=== PATIENT | male | born 1955 | race African-American/Black ===

== ENCOUNTER 2019-08-12 04:14 | Emergency (ER) | payer OTHER ==
[~2019-08-12] VITALS: Ht 167.6 cm; Wt 72.6 kg
[~2019-08-12 04:14] MED LIST: NORCO 5-325 TA1 EAC1 ORAL
[2019-08-12 04:17] VITALS: BP 130/81
[2019-08-12] MEDS ORDERED: Morphine Sulfate 4mg/ml Inj (IV USE ONLY) IVP ONE (04:30)
[2019-08-12] MEDS ORDERED: Omnipaque-300 100ml vial INJ PRN (04:30)
[2019-08-12 05:57] LABS: BASOPHILS % (AUTO) 2.1 % (0.0-2.0); EOSINOPHILS % (AUTO) 2.9 % (0.0-3.0); HEMATOCRIT 49.9 % (42.0-52.0); HEMOGLOBIN 16.3 G/DL (14.2-18.0); LYMPHOCYTES % (AUTO) 26.4 % (20.0-45.0); MEAN CORPUSCULAR VOLUME 91 FL (80-99); MONOCYTES % (AUTO) 7.1 % (1.0-10.0); NEUTROPHILS % (AUTO) 61.6 % (45.0-75.0); PLATELET COUNT 257 K/UL (150-450); RED BLOOD COUNT 5.49 M/UL (4.70-6.10); RED CELL DISTRIBUTION WIDTH 12.4 % (11.6-14.8); WHITE BLOOD COUNT 8.5 K/UL (4.8-10.8)
[2019-08-12 06:05] LABS: ANION GAP 10 mmol/L (5-15); BLOOD UREA NITROGEN 10 mg/dL (7-18); CALCIUM 9.1 MG/DL (8.5-10.1); CARBON DIOXIDE 28 MMOL/L (21-32); CHLORIDE 107 MMOL/L (98-107); CREATININE 1.1 MG/DL (0.55-1.30); POTASSIUM 4.2 MMOL/L (3.5-5.1); SODIUM 145 MMOL/L (136-145)
[2019-08-12 06:10] LABS: ALANINE AMINOTRANSFERASE 84 U/L (12-78); ALBUMIN 4.3 G/DL (3.4-5.0); ALBUMIN/GLOBULIN RATIO 1.2 (1.0-2.7); ALKALINE PHOSPHATASE 131 U/L (46-116); ASPARTATE AMINO TRANSFERASE 40 U/L (15-37); BILIRUBIN,TOTAL 0.4 MG/DL (0.2-1.0)
[2019-08-12 06:21] LABS: BILIRUBIN, URINE NEGATIVE (NEGATIVE); GLUCOSE, URINE (UA) NEGATIVE (NEGATIVE); KETONES,URINE NEGATIVE (NEGATIVE); LEUKOCYTE ESTERASE ,URINE 1+ (NEGATIVE); NITRITE,URINE NEGATIVE (NEGATIVE); PH,URINE 6 (4.5-8.0); PROTEIN,URINE 1+ (NEGATIVE); UROBILINOGEN,URINE 4 MG/DL (0.0-1.0)
[2019-08-12 06:56] LABS: APPEARANCE,URINE SLIGHTLY CLOUDY; COLOR,URINE YELLOW
--- NOTE | 2019-08-12 07:07 | Emergency Room Report ---
History of Present Illness General Chief Complaint: Abdominal Pain Source: Patient (Benjamin Koenig MD) Present Illness HPI . 63-year-old male presents ED complaining of abdominal pain. Brought in by EMS from home. Has had pain for the last 3 days. Left-sided, sharp, 7 out of 10, radiating to the back. Notes increased urination. Denies fevers or chills. Denies nausea or vomiting. Denies chest pain. Denies cough. No other aggravating relieving factors. Denies any other associated symptoms COVID-19 risk:Travel to affect: No (Benjamin Koenig MD) Allergies: Coded Allergies: PENICILLINS (Verified Allergy, Unknown, 08/12/19) Patient History Past Medical History: none Past Surgical History: none Pertinent Family History: none Social History: Denies: smoking, alcohol use, drug use Immunizations: UTD Reviewed Nursing Documentation: PMH: Agreed; PSxH: Agreed (Benjamin Koenig MD) Review of Systems All Other Systems: negative except mentioned in HPI (Benjamin Koenig MD) Physical Exam Vital Signs Date Time Temp Pulse Resp B/P (MAP) Pulse Ox O2 Delivery O2 Flow Rate FiO2 08/12/19 04:08 98.2 58 18 130/81 (97) 98 Room Air Sp02 EP Interpretation: reviewed, normal General Appearance: no apparent distress, alert, GCS 15, non-toxic Head: normocephalic, atraumatic Eyes: bilateral eye normal inspection, bilateral eye PERRL ENT: hearing grossly normal, normal pharynx, no angioedema, normal voice Neck: full range of motion, supple/symm/no masses Respiratory: chest non-tender, lungs clear, normal breath sounds, speaking full sentences Cardiovascular #1: regular rate, rhythm, no edema Cardiovascular #2: 2+ carotid (R), 2+ carotid (L), 2+ radial (R), 2+ radial (L) , 2+ dorsalis pedis (R), 2+ dorsalis pedis (L) Gastrointestinal: normal bowel sounds, soft, non-distended, no guarding, no rebound, tenderness - LLQ Rectal: deferred Genitourinary: normal inspection, no CVA tenderness Musculoskeletal: back normal, normal range of motion, gait/station normal, non- tender Neurologic: alert, motor strength/tone normal, oriented x3, sensory intact, responsive, speech normal Psychiatric: judgement/insight normal, memory normal, mood/affect normal, no suicidal/homicidal ideation Reflexes: 3+ bicep (R), 3+ bicep (L), 3+ tricep (R), 3+ tricep (L), 3+ knee (R) , 3+ knee (L) Skin: no rash Lymphatic: no adenopathy (Benjamin Koenig MD) Medical Decision Making Diagnostic Impression: Primary Impression: Renal calculus, left Labs Test 08/12/19 04:30 White Blood Count 8.5 K/UL (4.8-10.8) Red Blood Count 5.49 M/UL (4.70-6.10) Hemoglobin 16.3 G/DL (14.2-18.0) Hematocrit 49.9 % (42.0-52.0) Mean Corpuscular Volume 91 FL (80-99) Mean Corpuscular Hemoglobin 29.6 PG (27.0-31.0) Mean Corpuscular Hemoglobin Concent 32.5 G/DL (32.0-36.0) Red Cell Distribution Width 12.4 % (11.6-14.8) Platelet Count 257 K/UL (150-450) Mean Platelet Volume 6.4 FL (6.5-10.1) Neutrophils (%) (Auto) 61.6 % (45.0-75.0) Lymphocytes (%) (Auto) 26.4 % (20.0-45.0) Monocytes (%) (Auto) 7.1 % (1.0-10.0) Eosinophils (%) (Auto) 2.9 % (0.0-3.0) Basophils (%) (Auto) 2.1 % (0.0-2.0) Urine Color Yellow Urine Appearance Slightly cloudy Urine pH 6 (4.5-8.0) Urine Specific [place] 1.020 (1.005-1.035) Urine Protein 1+ (NEGATIVE) Urine Glucose (UA) Negative (NEGATIVE) Urine Ketones Negative (NEGATIVE) Urine Blood 3+ (NEGATIVE) Urine Nitrite Negative (NEGATIVE) Urine Bilirubin Negative (NEGATIVE) Urine Urobilinogen 4 MG/DL (0.0-1.0) Urine Leukocyte Esterase 1+ (NEGATIVE) Urine RBC 15-20 /HPF (0 - 0) Urine WBC 5-10 /HPF (0 - 0) Urine Squamous Epithelial Cells None /LPF (NONE/OCC) Urine Bacteria Moderate /HPF (NONE) Sodium Level 145 MMOL/L (136-145) Potassium Level 4.2 MMOL/L (3.5-5.1) Chloride Level 107 MMOL/L (98-107) Carbon Dioxide Level 28 MMOL/L (21-32) Anion Gap 10 mmol/L (5-15) Blood Urea Nitrogen 10 mg/dL (7-18) Creatinine 1.1 MG/DL (0.55-1.30) Estimat Glomerular Filtration Rate > 60 mL/min (>60) Glucose Level 92 MG/DL (74-106) Calcium Level 9.1 MG/DL (8.5-10.1) Total Bilirubin 0.4 MG/DL (0.2-1.0) Aspartate Amino Transf (AST/SGOT) 40 U/L (15-37) Alanine Aminotransferase (ALT/SGPT) 84 U/L (12-78) Alkaline Phosphatase 131 U/L (46-116) Total Protein 7.9 G/DL (6.4-8.2) Albumin 4.3 G/DL (3.4-5.0) Globulin 3.6 g/dL Albumin/Globulin Ratio 1.2 (1.0-2.7) Lipase 209 U/L (73-393) (Benjamin Koenig MD) ER Course Patient was endorsed to me by Dr. Koenig. Patient was given pain medications. CT imaging showed left renal stone. Patient does not show any evidence of systemic toxicity at this time. He is not been vomiting. Patient was given prescription for antibiotics as well as pain medications. He was advised to follow-up with urology. Advised to return if worse.This medical record is generated with [employer] learning facilitator software. There may be some learning facilitator discrepancies related to use of this software (Tong Woody MD) Last Vital Signs Date Time Temp Pulse Resp B/P (MAP) Pulse Ox O2 Delivery O2 Flow Rate FiO2 08/12/19 05:29 98.2 08/12/19 04:17 85 18 130/81 98 Room Air (Benjamin Koenig MD) Status: improved (Tong Woody MD) Disposition: HOME, SELF-CARE Condition: Stable Scripts Trimethoprim/Sulfamethoxazole 160/800* (BACTRIM DS TABLET*) 1 Each Tablet 1 TAB ORAL Q12H, #14 TAB 0 Refills Prov: Tong Woody MD 08/12/19 Hydrocodone Bit/Acetaminophen 5-325* (NORCO 5-325 TABLET*) 1 Each Tablet 1 TAB ORAL Q4H PRN for FOR PAIN, #12 TAB 0 Refills Prov: Tong Woody MD 08/12/19 Tamsulosin HCl (Flomax) 0.4 Mg Cap.er.24h 0.4 MG ORAL DAILY, #14 CAP Prov: Tong Woody MD 08/12/19 Referrals: NON PHYSICIAN (PCP) Benjamin Koenig MD Aug 12, 2019 07:07 Tong Woody MD Aug 12, 2019 07:49
--- NOTE | 2019-08-12 07:29 | Diagnostic Imaging Report ---
EXAM: CT Abdomen and Pelvis With Intravenous Contrast CLINICAL HISTORY: ABD PAIN TECHNIQUE: Axial computed tomography images of the abdomen and pelvis with intravenous contrast. CTDI is 5.6 mGy and DLP is 276 mGy-cm. One or more of the following dose reduction techniques were used: automated exposure control, adjustment of the mA and/or kV according to patient size, use of iterative reconstruction technique. COMPARISON: No relevant prior studies available. FINDINGS: Lung bases: Unremarkable. No mass. No consolidation. ABDOMEN: Liver: Unremarkable. No mass. Gallbladder and bile ducts: Unremarkable. No calcified stones. No ductal dilation. Pancreas: Unremarkable. No mass. No ductal dilation. 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 Adrenals: Unremarkable. No mass. Kidneys and ureters: 6 mm left renal pelvic stone and mild enhancement in the left renal pelvis is present. Incidental bilateral renal cortical cysts largest measuring 2.8 cm in inferior pole left kidney are present and require no additional imaging follow-up. Stomach and bowel: Unremarkable. No obstruction. No mucosal thickening. PELVIS: Appendix: No findings to suggest acute appendicitis. Bladder: Unremarkable. No mass. Reproductive: Unremarkable as visualized. ABDOMEN and PELVIS: Intraperitoneal space: Unremarkable. No free air. No significant fluid collection. Bones/joints: Chronic appearing posttraumatic deformity left hip and pelvis with moderately advanced left greater than right hip degenerative change. No acute fracture. No dislocation. Soft tissues: Unremarkable. Vasculature: Unremarkable. No abdominal aortic aneurysm. Lymph nodes: Unremarkable. No enlarged lymph nodes. IMPRESSION: Left renal pelvis 6 mm nonobstructing stone with mild asymmetric enhancement in the mucosa of the left renal pelvis. Correlate clinically for any evidence of pyonephrosis. Otherwise no acute findings in the abdomen or pelvis status post prior splenectomy.
[2019-08-12] MEDS ORDERED: CEPHALEXIN500 MG ORAL (07:46)
[2019-08-12] MEDS ORDERED: FLOMAX0.4 MG ORAL (07:46)
[2019-08-12] MEDS ORDERED: NORCO 5-325 TA1 EAC1 ORAL (07:53)
[2019-08-12] MEDS ORDERED: BACTRIM DS TAB1 EAC1 ORAL (07:53)
[2019-08-12] MEDS ORDERED: Bactrim-DS 1 tab ORAL ONE (08:00)
[2019-08-12 08:15] VITALS: BP 130/81
== END 2019-08-12 08:15 | disposition home or self-care (01) ==
LOC: EDBD 04:14 → EMR 04:40
DX: N20.0 Calculus of kidney (principal); Z88.0 Allergy status to penicillin
CPT/HCPCS: 36415; 74177; 80053; 81003; 83690; 85025; 87086; 96374; J2270; J7040; Q9967; Z7502; 99284